=== PATIENT | female | born 1955 | race Caucasian/White ===

== ENCOUNTER 2023-10-22 06:29 | Day surgery (SDC) | payer OTHER, SELFPAY ==
[2023-10-22] VITALS (14 sets, daily range): BP systolic 107–152; BP diastolic 67–92; BMI 29.4
[2023-10-22 08:35] LABS: Glucose - Point of Care 145 mg/dl (70-99)
[2023-10-22 11:13] LABS: Glucose - Point of Care 207 mg/dl (70-99)
== END 2023-10-22 13:55 | disposition home or self-care (01) ==
LOC: GI 06:29
PROVIDERS: ATTENDING PHYSICIAN Internal Medicine Critical Care Medicine
DX: R06.02 Shortness of breath (principal); C34.2 Malignant neoplasm of middle lobe, bronchus or lung; I48.91 Unspecified atrial fibrillation; J98.9 Respiratory disorder, unspecified; Z87.891 Personal history of nicotine dependence; G47.30 Sleep apnea, unspecified; C77.1 Secondary and unspecified malignant neoplasm of intrathoracic lymph nodes
CPT/HCPCS: 31653; 31625; 31624; 31623; 88173; 88305; 71045; 82962; 87070; 87102; 87116; 87205; 88112; 88333; 88341; 88342

== ENCOUNTER → 2023-11-06 14:37 | Outpatient (REF) | payer OTHER, SELFPAY | LOC: RSP 14:37 | PROVIDERS: ATTENDING PHYSICIAN Thoracic Surgery (Cardiothoracic Vascular Surgery); FAMILY PHYSICIAN Family Medicine | DX: C34.2 Malignant neoplasm of middle lobe, bronchus or lung (principal) | CPT/HCPCS: 94727; 94729; 88738; 94060 ==

== ENCOUNTER → 2023-12-06 11:52 | Outpatient (REF) | payer OTHER, SELFPAY | LOC: MRI 3T 11:52 | PROVIDERS: ATTENDING PHYSICIAN Internal Medicine Hematology & Oncology; FAMILY PHYSICIAN Family Medicine | DX: C34.2 Malignant neoplasm of middle lobe, bronchus or lung (principal) | CPT/HCPCS: 70553; A9575 ==

== ENCOUNTER → 2024-02-01 13:49 | Outpatient (REF) | payer OTHER, SELFPAY | LOC: RAD 13:49 | PROVIDERS: ATTENDING PHYSICIAN Internal Medicine Hematology & Oncology; FAMILY PHYSICIAN Family Medicine | DX: C34.2 Malignant neoplasm of middle lobe, bronchus or lung (principal) | CPT/HCPCS: 71260; 74177; Q9967 ==

== ENCOUNTER 2024-04-24 06:59 | Day surgery (SDC) | payer OTHER, SELFPAY ==
[2024-04-24 08:08] VITALS: BMI 28.6
[2024-04-24 08:10] LABS: Glucose - Point of Care 143 mg/dl (70-99)
[2024-04-24 09:52] LABS: Glucose - Point of Care 145 mg/dl (70-99)
== END 2024-04-24 10:12 | disposition home or self-care (01) ==
LOC: CATH 06:59
PROVIDERS: ATTENDING PHYSICIAN Internal Medicine Cardiovascular Disease; FAMILY PHYSICIAN Family Medicine; OTHER PHYSICIAN Internal Medicine Cardiovascular Disease
DX: I48.19 Other persistent atrial fibrillation (principal); I70.0 Atherosclerosis of aorta; Q21.12 Patent foramen ovale; R00.2 Palpitations; E03.9 Hypothyroidism, unspecified; E11.9 Type 2 diabetes mellitus without complications; E78.5 Hyperlipidemia, unspecified; G47.33 Obstructive sleep apnea (adult) (pediatric); F41.9 Anxiety disorder, unspecified; K76.0 Fatty (change of) liver, not elsewhere classified; I10 Essential (primary) hypertension; I08.1 Rheumatic disorders of both mitral and tricuspid valves; Z79.899 Other long term (current) drug therapy; Z87.891 Personal history of nicotine dependence; Z90.49 Acquired absence of other specified parts of digestive tract; Z90.89 Acquired absence of other organs; Z92.21 Personal history of antineoplastic chemotherapy; M85.80 Other specified disorders of bone density and structure, unspecified site; E83.42 Hypomagnesemia; D50.9 Iron deficiency anemia, unspecified; Z79.01 Long term (current) use of anticoagulants; Z79.84 Long term (current) use of oral hypoglycemic drugs; Z86.0100 Personal history of colon polyps, unspecified
CPT/HCPCS: 93312; 93320; 93325; 82962

== ENCOUNTER 2024-04-25 05:50 | Day surgery (SDC) | payer OTHER, SELFPAY ==
[2024-04-08 13:27] VITALS: BMI 28.0
[2024-04-08 13:58] LABS: % Basophils 0.4 % (0-2); % Eosinophils 2.6 % (0-6); % Immature Granulocytes 0.7 % (0-0.5); % Lymphocytes 5.8 % (20.5-51.1); % Monocytes 7.9 % (1.7-9.3); % Neutrophils 82.6 % (42.2-75.2); Absolute Eosinophils 0.3 10^3/uL (0-0.7); Absolute Immature Granulocytes 0.1 10^3/uL (0-0.05); Absolute Lymphocytes 0.6 10^3/uL (1.2-3.4); Absolute Monocytes 0.8 10^3/uL (0.1-0.6); Absolute Neutrophils 8.8 10^3/uL (1.4-6.5); Hematocrit 28.3 % (37.0-47.0); Hemoglobin 9.1 g/dL (12.0-16.0); Mean Corp Hgb Conc. 32.2 g/dL (33.0-37.0); Mean Corpuscular Hgb 27.7 pg (27.0-31.0); Nucleated Red Blood Cells % 0 %; Platelet Count 361 10^3/uL (130-400); Red Blood Cell Count 3.29 10^6/uL (4.20-5.40); Red Cell Dist. Width 14.2 % (11.5-14.5); White Blood Cell Count 10.7 10^3/uL (4.8-10.8)
[2024-04-08 14:27] LABS: INR 1.41; PT 17.6 Sec (11.4-14.6)
[2024-04-08 14:29] LABS: ALT (SGPT) 31 U/L (0-35); AST (SGOT) 61 U/L (14-36); Albumin 4.2 g/dl (3.5-5.0); Alkaline Phosphatase 171 U/L (38-126); Blood Urea Nitrogen 21 mg/dl (7-17); Calcium 9.4 mg/dl (8.4-10.2); Carbon Dioxide 26 mmol/L (22-30); Chloride 95 mmol/L (98-107); Estimated Creatinine Clearance 59 ml/min; Glucose 115 mg/dl (70-99); Magnesium 1.6 mg/dl (1.6-2.3); Potassium 4.1 mmol/L (3.5-5.1); Sodium 136 mmol/L (135-145); Total Bilirubin 0.5 mg/dl (0.2-1.3); Total Protein 7.3 g/dl (6.3-8.2); eGFR > 60.00
--- NOTE | 2024-04-09 14:57 | HPS.HSE ---
Family Physician
-
Family Physician: Alexia Herrera
Chief Complaint
-
Persistent atrial fibrillation.
History of Present Illness
The patient is a 68-year-old female presenting today for persistent atrial fibrillation. The patient reports significant fatigue and palpitations secondary to this diagnosis. She is on pharmacological therapy with Diltiazem. She has been
compliant with Eliquis for oral anticoagulation. She notes that her atrial fibrillation symptoms are greatly interfering with her activities of daily living and are overall impacting her quality of life. She is interested in proceeding with
pulmonary vein isolation for further arrhythmia management. She denies any current complaints today such as chest pain, shortness of breath at rest, nausea, vomiting, diarrhea, lightheadedness, dizziness, cough, sore throat, or fever.
Medical History
Past Medical History
Past Medical History: Reports Other
Additional Past Medical History:
1. Persistent atrial fibrillation, pharmacological therapy with Diltiazem, oral anticoagulation with Eliquis.
2. Hypertension.
3. Hyperlipidemia.
4. Supraventricular tachycardia.
5. Obstructive sleep apnea, compliant with device.
6. Non-small cell lung cancer, stage IIIB, diagnosed incidentally through chest CT 09/2023, status post chemotherapy and radiation; on current immunotherapy.
7. Non-insulin dependent diabetes.
8. Colon polyps.
9. Fatty liver disease with mildly elevated transaminase.
10. Benign positional vertigo.
11. Hypothyroidism.
12. Iron deficiency anemia, to start IV Injectafer per hematology.
13. Anxiety.
14. Osteopenia.
15. Hypomagnesemia, improved with oral supplementation.
16. History of tobacco abuse.
Past Surgical History: Reports Other
Additional Past Surgical History:
1. Cholecystectomy.
2. Lipoma excision from neck.
3. Tonsillectomy.
4. Bilateral cataract extraction.
5. Bronchoscopy.
6. Colonoscopy.
7. Endoscopy.
Social History
Tobacco: Former Smoker (She is a former one pack per day cigarette smoker who quit tobacco products altogether approximately 11 years ago. )
Alcohol: Other (Rare. )
Personal:
Living: Other (The patient lives in a one-story home with her .)
Family History
Family History: Not pertinent
Allergies / Home Medications
Allergy/Medication List:
HOME MEDICATIONS:
1. Apixaban 5 mg p.o. twice a day.
2. Atorvastatin 20 mg p.o. at noon.
3. Calcium and vitamin D3 one tablet p.o. twice a day.
4. Diltiazem HCl 240 mg p.o. daily.
5. Lexapro 10 mg p.o. at bedtime.
6. Glimepiride 2 mg p.o. daily.
7. Vascepa 2 gm p.o. twice a day.
8. Imfinzi one dose IV every two weeks.
9. Levothyroxine 75 mcg p.o. Mondays, Tuesdays, Wednesdays,
, Fridays, and Saturdays.
10. Levothyroxine 150 mcg p.o. on Sundays.
11. Lisinopril-hydrochlorothiazide 10-12.5 mg p.o. daily.
12. Magnesium 400 mg p.o. daily.
13. Metformin 1000 mg p.o. twice a day.
14. Multivitamin one tablet p.o. daily.
15. Ozempic 0.5 mg subcutaneous on Tuesdays.
ALLERGIES: No known allergies.
Review of Systems
-
A 12 point ROS was completed and negative except as noted: Yes
Physical Exam
Vital Signs
Blood pressure 116/72, heart rate 100, respirations 18, pulse ox 94% on room air.
Height 5 feet 5 inches, weight 76.3 kg, BMI 28.0.
Physical Exam
General: Well Developed, Well Nourished and No Apparent Distress
HEENT: NormoCephalic, Moist mucous membranes and Atraumatic
Respiratory: Non Labored Respirations and Decreased Breath Sounds
Cardiac: Irregular Rhythm
GI: Soft, Non Tender and Non Distended
Musculoskeletal: Normal Gait & Station
Skin: Warm and Dry
Neuro: AO x 3 and Nonfocal/grossly intact
Laboratory Results
-
04/08/24 13:38
04/08/24 13:38
Laboratory Results
PT 17.6 Sec (11.4-14.6) H 04/08/24 13:38
INR 1.41 04/08/24 13:38
Total Bilirubin 0.5 mg/dl (0.2-1.3) 04/08/24 13:38
AST 61 U/L (14-36) H 04/08/24 13:38
ALT 31 U/L (0-35) 04/08/24 13:38
Alkaline Phosphatase 171 U/L (38-126) H 04/08/24 13:38
Type and screen B positive.
EKG 04/08/2024: Atrial fibrillation. Low voltage QRS. Cannot rule out anterior infarct, cited on or before September 06, 2023.
Impression/Plan
-
IMPRESSION/PLAN:
1. Persistent atrial fibrillation:The patient is in need of pulmonary vein isolation with Dr. Rakesh Mane on 04/25/2024. The benefits and risks of this procedure have been explained to the patient. The patient understands these risks and wishes to
proceed. She is aware to continue Eliquis uninterrupted prior to her ablation. She will take no medications the morning of her procedure.
2. Iron deficiency anemia: The patient's hemoglobin is fairly consistent with trends provided by hematology (9.7 and 9.3 most recently). Per Dr. Santoro, she will be started on IV Injectafer. Fortunately, the patient is hemodynamically stable.
[2024-04-25] VITALS (18 sets, daily range): BP systolic 102–135; BP diastolic 53–80; PULSE 2–99; BMI 28.0
[2024-04-25 06:48] LABS: Glucose - Point of Care 165 mg/dl (70-99)
--- NOTE | 2024-04-25 07:38 | ITS.CL.ABL ---
Foreign Exchange Position Clerk - Ablation
Ablation
Procedure Report:
Primary Telephone Service Representative: Ruben Petersen MD
Procedure Date: 04/25/2024
Patient History:
Patient is a very pleasant 68-year-old female with a past medical history significant for diabetes mellitus type 2, hypertension, sleep apnea on CPAP, hypothyroidism, fatty liver disease, persistent atrial fibrillation, stage IIIb lung
adenocarcinoma undergoing treatment.
See H&P for complete details.
Indication:
Symptomatic persistent atrial fibrillation
Arrhythmia Specific History:
Prior Medical Therapies for Rate and Rhythm Control:
[ ] Beta-mari
X Calcium channel-mari
[ ] Amiodarone
[ ] Dronederone
[ ] Sotalol
[ ] Flecainide
[ ] Dofetilide
[ ] Options limited by bradycardia
[ ] Options limited by comorbid renal disease
Prior Procedural Therapies for AF/AFL:
[ ] Cardioversion
[ ] Pulmonary Vein Isolation
[ ] Posterior Wall Isolation
[ ] Additional lines (Specify)
[ ] Surgical Thayer-MAZE or PVI (Specify)
Procedure Performed:
X AF ablation procedure (28903) -- includes LA/CS pacing, trans-septal, 3D mapping, + ICE
[ ] +IV drug (68725)
[ ] +Other Arrhythmia (01291)
X +Other AF Line/ablation (61114) --posterior wall isolation (floor, roof, wall)
Risks and expected recovery has been explained in detail. Alternative options have been explored, and in a shared-decision making fashion we have decided that this was the most appropriate procedure.
Method
NPO status confirmed. Grounding pad applied. Defibrillator pads applied. Continuous surface ECG, pulse oximetry, and blood pressure were monitored. Procedure was performed under general anesthesia, with anesthesia services.
Both groins were clipped, prepped with Chloraprep, and draped in sterile fashion. Time out was called. Local anesthesia administered with bupivacaine. The right femoral vein was accessed for catheter placement, using ultrasound guidance,
micro-puncture needle/wire, and modified seldinger technique. 3 sheaths were placed. The following catheters were used:
[ ] Tacticath SE (D/F Curve) ablation catheter
X Viewflex 9Fr ICE catheter
X Inquiry decapolar 6Fr diagnostic catheter
[ ] CRD Hex 6Fr
[ ] Arctic Front Advance Cryoballoon ([ ]28mm[ ]23mm)
[ ] Achieve Advance mapping catheter ([ ]15mm[ ]20mm)
X FlexCath Contour 10 Fr with PulseSelect PFA Catheter
X Advisor HD Grid Mapping Catheter, SE
[ ] Acuson AcuNav 8 Fr ICE catheter
[ ]Other: [ ]
Intracardiac ultrasound (ICE) was carefully advanced into the right atrium to guide sheath placement over a J-wire, catheter placement, guide trans-septal puncture, identify potential complications, identify anatomic structures and ensure proper
contact between ablation catheter and tissue.
Heparin was given prior to trans-septal puncture. Heparin was given to achieve and maintain a target ACT of 300-400 seconds throughout the procedure.
Trans-septal access was performed under ICE guidance. The trans-septal puncture was performed with a SafeSept wire through a Brockenbrough needle assembly through the steerable sheath. The wire was visualized as it entered the LSPV and system
advanced under ICE guidance and fluoroscopy into the LA. The Brockenbrough needle assembly, SafeSept wire and sheath dilator were removed under negative pressure. LA pressure was measured and recorded.
ICE and 3D mapping was performed to identify relevant cardiac structures. A careful 3D map was created to assess for regions of low-voltage and abnormal electrogram signals using HD grid mapping catheter and PulseSelect catheter. Additional mapping
was performed as outlined below.
Prior to ablation, glycopyrrolate was provided. PulseSelect catheter was advanced over J-wire to the ostium of each vein. Pulmonary vein isolation was performed with ostial and antral lesions in a circumferential manner. Contact was visualized via
EAM, ICE, fluoroscopy, and EGM signals. Posterior wall isolation was performed by anchoring the J-wire within the pulmonary vein and placing the PulseSelect catheter in contact with the posterior wall as visualized by aforementioned methods.
Following completion of ablation lesions, sinus rhythm was restored with a 200J synchronized DCCV and a post-ablation voltage/activation map was performed in sinus rhythm. Entrance and exit block were confirmed for each vein and the posterior wall.
Catheter and sheath were removed from the left atrium and post-ablation intracardiac echo evaluation was consistent with pre-ablation with no changes and no pericardial effusion and there is no left atrial thrombus or left ventricle thrombus seen.
Electrophysiology study was performed. Hemostasis was obtained with figure of 8 stitch for each groin and with manual pressure. Protamine was used for reversal.
Estimated Blood Loss
5 mL
Complications
None
Fluoroscopy: 3.3 minutes; 21.79 mGy; DAP 2.58
Baseline Intervals:
Rhythm: AF
QRS: 83 ms
QT: 292 ms
QTc: 435 ms
Post-Procedure Intervals:
HI: 170 ms
QRS: 106 ms
QT: 361 ms
QTc: 447 ms
A-A: 653 ms
R-R: 653 ms
AVWB: 360 ms
AVNERP: 500/330 ms
AERP: 500/250
Recommendations
- Bedrest with straight-leg precautions as ordered
- Anticipate same day discharge if patient meeting clinical metrics
- Resume home medications as indicated including OAC
- Ok to resume anticoagulation tonight if patient and groin sites stable
- PPI daily for 30 days
- Plan for follow-up in office as scheduled
Rakesh Mane,
Clinical Cardiac Pulmonology Physician
cc: Ruben Petersen MD; Alexia Herrera MD; Miguel A Driver MD; Matilda Santoro MD
[2024-04-25 08:29] LABS: ACT-LR - POC 189 Seconds (116-155)
[2024-04-25 08:33] LABS: ACT-LR - POC 195 Seconds (116-155)
[2024-04-25 08:38] LABS: Glucose - Point of Care 145 mg/dl (70-99)
[2024-04-25 08:44] LABS: ACT-LR - POC 308 Seconds (116-155)
[2024-04-25 08:52] LABS: ACT-LR - POC 314 Seconds (116-155)
[2024-04-25 09:14] LABS: ACT-LR - POC 321 Seconds (116-155)
[2024-04-25 09:49] LABS: ACT-LR - POC 160 Seconds (116-155)
[2024-04-25 11:35] LABS: Glucose - Point of Care 251 mg/dl (70-99)
[2024-04-25] MEDS: CARDIZEM CD 240 MG PO (11:45)
[2024-04-25] MEDS: ANESTHETIC LOZENGE 1 LOZENGE PO ×2 (13:46→19:49)
--- NOTE | 2024-04-25 14:37 | PTCARENOTE ---
Patient ambulated to bathroom on RA. Upon returnign to bed o2 79% RA. No complaints of pain or SOB. 3L o2 applied. 92% ON 3lnc. Recovered quickly.
--- NOTE | 2024-04-25 18:05 | PTCARENOTE ---
received pt post pvi. pt oriented to unit. pt educated on plan of care and verbalized understanding. pt is sr on the monitor, hr in the 90s, vss. pt on 3LO2 at 92%. pt offers no complaints at this time. call crawford within reach.
--- NOTE | 2024-04-25 18:06 | RESPNOTE ---
spoke with patient regarding bipap/cpap. Patient states she does not have own unit but will try hospital unit. Patient does not recall settings, but H&P in EMR has settings of bipap 03/13. TT to provider Miranda Overton for order change to routine HS bipap
03/13. new order now in EMR.
[2024-04-25] MEDS: ELIQUIS 5 MG PO (19:49)
[2024-04-25] MEDS: LEXAPRO 10 MG PO (19:49)
[2024-04-25] MEDS: GLUCOPHAGE 1000 MG PO (19:49)
--- NOTE | 2024-04-25 21:08 | PTCARENOTE ---
Pt received seated in chair. remains 93% on 3L NC. Pt without complaints. R groin CDI + pulse. Plan of care discussed. call crawford within reach.
[2024-04-25 22:44] LABS: Glucose - Point of Care 154 mg/dl (70-99)
[2024-04-26 04:24] VITALS: BP 116/66
[2024-04-26] MEDS: SYNTHROID 75 MCG PO (04:27)
[2024-04-26 04:57] LABS: Hematocrit 23.3 % (37.0-47.0); Mean Corpuscular Hgb 26.8 pg (27.0-31.0); Mean Corpuscular Volume 89.3 fL (81.0-99.0); Mean Platelet Volume 9.8 fL (7.4-10.4); Platelet Count 269 10^3/uL (130-400); Red Blood Cell Count 2.61 10^6/uL (4.20-5.40); Red Cell Dist. Width 17.2 % (11.5-14.5); White Blood Cell Count 8.8 10^3/uL (4.8-10.8)
[2024-04-26 05:23] LABS: Blood Urea Nitrogen 18 mg/dl (7-17); Calcium 8.2 mg/dl (8.4-10.2); Carbon Dioxide 26 mmol/L (22-30); Chloride 100 mmol/L (98-107); Estimated Creatinine Clearance 89 ml/min; Glucose 141 mg/dl (70-99); Magnesium 1.5 mg/dl (1.6-2.3); Potassium 4.3 mmol/L (3.5-5.1); Sodium 134 mmol/L (135-145); eGFR > 60.00
[2024-04-26 07:20] VITALS: BP 118/58
[2024-04-26 07:24] LABS: Glucose - Point of Care 137 mg/dl (70-99)
[2024-04-26 07:26] VITALS: BMI 27.8
--- NOTE | 2024-04-26 08:50 | CON.PUL ---
Consultation
Consultation Request
Date/Time Consultation Requested: 04/25/2024 - 1441
Date/Time Consultation Performed: 04/26/2024 - 0848
Requesting Provider: FELICIA Pollard
Performing Provider: Stefan Ba MD
Reason for Consultation: Hypoxia
Medical History
-
Chief Complaint: Elective PVI
History of Present Illness:
68-year-old female with a past medical history of moderate restrictive lung disease, former tobacco smoker, TTAO on BiPAP, A-fib on Eliquis, history of SVT, DM type II, anxiety, hypertension, hypothyroidism, mixed hyperlipidemia, history of BPPV and
right middle lung adenocarcinoma s/p XRT on immunotherapy with durvalumab who presents for an A-fib ablation. Patient has been having symptoms including fatigue and palpitations. She has been compliant to her diltiazem + Eliquis. She follows with
cardiology as an outpatient with last visit on 01/29/[address] Mane. At that office visit, pulmonary vein isolation was discussed and she agreed to procedure. On 04/25/2024 she underwent pulmonary vein isolation with posterior wall isolation.
Following completion of ablation lesions, sinus rhythm was restored with a 200 J synchronized DCCV. There were no complications and EBL was 5 cc. She was transferred to the IVU for further care and pulmonary services consulted for additional
management/recommendations.
Of note patient follows with us in the [facility] office with Dr. Driver, last visit on 01/18/2024. She has a history of restrictive lung disease likely due to body habitus; last PFT from 01/18/2024 showed moderate restrictive lung defect with T%
predicted, with a moderate gas change capacity defect which was normal when accounting for alveolar volume involved in gas exchange (DLco: 51%, DLco/VA: 80%), and is a former tobacco smoker. Also follows with us for TATO on BiPAP 11/7cmH2O.
PMHx: Right middle lung adenocarcinoma s/p XRT on immunotherapy, pulmonary LOLITA, former tobacco smoker (44-slbc-pwuh history, quit 2012), TATO on BiPAP, A-fib on Eliquis, history of SVT, DM type II, anxiety, hypertension, hypothyroidism, fatty liver
disease, mixed hyperlipidemia, osteopenia, colonic polyps, lymphadenopathy, history of BPPV
PSHx: LASIK eye surgery (both eyes), wisdom tooth extraction, cholecystectomy, tonsillectomy, excision of lipoma, cataract surgery
Past Medical History
Past Medical History: Other (Above as per HPI)
Past Surgical History: Other (Above as per HPI)
Social History
Tobacco: Former Smoker (11-hbtf-umud history, quit 2012)
Alcohol: Occasional (Rare use)
Drug: None
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
Family History
Family History: CAD (Mother) and Diabetes (Father)
Allergies / Home Medications
Allergies
Allergy/AdvReac Type Severity Reaction Status Date / Time
ibandronate sodium AdvReac bone pain, Verified 04/25/24 16:28
[From [facility]iva] nausea,
headache,
brain fog
Home Medications
�Medication �Instructions �Recorded �Confirmed �Last Taken �Type
atorvastatin 20 mg tablet 20 mg PO DAILY@1200 High 08/31/23 04/25/24 04/24/24 11:00 History
Cholesterol
escitalopram oxalate 10 mg tablet 10 mg PO HS Mental Health/Anxiety 08/31/23 04/25/24 04/24/24 11:00 History
(Lexapro)
glimepiride 2 mg tablet 2 mg PO DAILY Diabetes 08/31/23 04/25/24 04/24/24 11:00 History
icosapent ethyl 1 gram capsule 2 g PO BID Heart Disease/Condition 08/31/23 04/25/24 04/24/24 17:00 History
(Vascepa)
levothyroxine 75 mcg tablet 75 mcg PO MOTUWETHFRSA Thyroid 08/31/23 04/25/24 04/24/24 11:00 History
levothyroxine 75 mcg tablet 150 mcg PO MAC 08/31/23 04/25/24 04/20/24 08:00 History
lisinopril 10 1 tab PO DAILY Blood Pressure 08/31/23 04/25/24 04/24/24 11:00 History
mg-hydrochlorothiazide 12.5 mg
tablet
metformin 500 mg tablet 1,000 mg PO BID Diabetes 08/31/23 04/25/24 04/24/24 17:00 History
multivitamin 1 tab PO DAILY@1200 Supplement 08/31/23 04/25/24 04/24/24 11:00 History
semaglutide 0.25 mg or 0.5 mg (2 0.5 mg SC TU Diabetes 08/31/23 04/25/24 04/15/24 11:00 History
mg/3 mL) subcutaneous pen injector
(Ozempic)
apixaban 5 mg tablet (Eliquis) 5 mg PO BID Blood Clot 09/14/23 04/25/24 04/24/24 17:00 History
Prevention/Tx
diltiazem HCl 240 mg capsule,24 240 mg PO DAILY Heart 04/04/24 04/25/24 04/24/24 05:00 History
hr,extended release Disease/Condition
magnesium 200 mg tablet 400 mg PO DAILY Supplement 04/04/24 04/25/24 04/24/24 11:00 History
Durvalumab-Imfinzi 780 mg IV Q2W Cancer 04/24/24 04/25/24 04/22/24 10:00 History
acetaminophen 500 mg tablet 1,000 mg PO Q6H PRN pain 04/24/24 04/25/24 Unknown History
albuterol sulfate 90 mcg/actuation 2 puff inhalation 6XD PRN sob 04/24/24 04/25/24 1 Week Ago History
aerosol inhaler ~04/17/24
calcium 600 mg capsule 600 mg PO DAILY@1200 Supplement 04/24/24 04/25/24 04/24/24 17:00 History
iron sucrose 200 mg iron/10 mL 200 mg IV QWEEK Supplement 04/24/24 04/25/24 04/22/24 09:00 History
intravenous solution (Venofer)
magnesium sulfate 2 gram/50 mL (4 1 g IV ONCE PRN hypomagnesium 04/24/24 04/25/24 04/22/24 09:00 History
%) in water intravenous piggyback
Review of Systems
-
History Source: Patient
All other systems: Negative unless noted
Vitals / Labs / Diagnostic Testing
Vital Signs
Temp Pulse Resp BP Pulse Ox
98.0 F 95 18 118/58 95
04/26/24 07:24 04/26/24 08:00 04/26/24 07:24 04/26/24 07:20 04/26/24 07:24
Lab Data
04/26/24 04:23
04/26/24 04:23
Diagnostic Testing:
Physical Exam
-
HEENT: Normocephalic, Anicteric and Moist Mucous Membranes
Cardiovascular: S1/S2, Murmur (16 at LUSB), Rub (negative) and Peripheral Edema (negative)
Respiratory: Wheeze (negative), Rales (negative), Rhonchi (negative) and Non-Labored Respirations
GI: Soft, Non Distended, Non Tender and Normal Bowel Sounds
Neurology: AO x 3 and Tremors (negative)
Skin: Warm and Dry
General: Respiratory Distress (negative), Comfortable, Fever (negative) and Chills (negative)
Assessment
-
Assessment: 68-year-old female with a past medical history of moderate restrictive lung disease, former tobacco smoker, TATO on BiPAP, A-fib on Eliquis, history of SVT, DM type II, anxiety, hypertension, hypothyroidism, mixed hyperlipidemia, history
of BPPV and right middle lung adenocarcinoma s/p XRT on immunotherapy with durvalumab who presents for an A-fib ablation. Patient has been having symptoms including fatigue and palpitations. She has been compliant to her diltiazem + Eliquis. She
follows with cardiology as an outpatient with last visit on 01/29/[address] Mane. At that office visit, pulmonary vein isolation was discussed and she agreed to procedure. On 04/25/2024 she underwent pulmonary vein isolation with posterior
wall isolation. Following completion of ablation lesions, sinus rhythm was restored with a 200 J synchronized DCCV. There were no complications and EBL was 5 cc. She was transferred to the IVU for further care and pulmonary services consulted for
additional management/recommendations.
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
hypothyroidism, fatty liver disease, mixed hyperlipidemia, osteopenia, colonic polyps, lymphadenopathy, history of BPPV
Impression:
#Symptomatic persistent A-fib s/p pulmonary vein isolation with posterior wall isolation (procedure performed on 04/25/2024)
#Acute anemia
#Hyponatremia (mild)
#Hypomagnesemia
#History of right middle lobe invasive lung adenocarcinoma (poorly differentiated) via robotic bronchoscopy on 10/22/2023 s/p XRT currently on immunotherapy with durvalumab
#TATO on BiPAP 11/7cmH2O
#Former tobacco smoker (17-icaj-lhid history, quit 2012)
#DM type II
#Anxiety
#Hypertension
#Mixed hyperlipidemia
#History of LOLITA seen on right middle lobe bronchoalveolar lavage from 10/22/2023
#Fatty liver disease
Plan:
- Patient remains in sinus rhythm s/p ablation yesterday
- Pain control
- Hb is low at 7 and she is not symptomatic nor is she actively bleeding
- Repeat CBC next week as an outpatient; she also receives IV iron infusions
- Transfuse to keep Hb>7g/dL; keep plt>50k
- Continue with outpatient follow-up with cardiology/EP
- Maintain SpO2 >90-94% with supplemental O2 as needed
- Continue with BiPAP with sleep
- Incentive spirometer encouraged q1hr while awake
- Replete electrolytes with K>4, Mg>2
- Maintain euglycemia with goal BG >100 and <180
- prn nebulized bronchodilators - not currently bronchospastic
- CXR from 04/25/2024 shows sick centimeter confluent mass in the right midlung region; this is either due to a pneumonia versus postobstructive pneumonia versus atelectasis versus worsening malignancy; continue follow-up with oncology as an
outpatient and would consider outpatient PET/CT vs CT chest without contrast to further evaluate this lesion
- DVT ppx: Eliquis
Patient is being prepared for discharge home today. She should continue to follow-up with us in the office as last visit was 01/18/[address] Driver. No additional recommendations at this time. Pulmonary service will now sign off. Thank you
for allowing us to be involved in the care of this patient. Please reconsult if there are any additional questions/concerns, or if patient's respiratory status deteriorates.
Data:
CXR 04/25/2024:
There is a 6 cm rounded confluent areas of parenchymal airspace disease in the right perihilar region and right middle lobe. This most likely is pneumonia, however, given the patient's clinical history, both postobstructive pneumonia and enlarging
pulmonary malignancy is included in the differential diagnosis.
Contrast-enhanced CT of the chest may be useful for further evaluation
Total time spent today was 57 minutes for this encounter. Time includes reviewing laboratory test/imaging results, reviewing pertinent medical records, obtaining and reviewing medical history, performing an appropriate exam, ordering medications,
tests and procedures. Time also includes documentation of this encounter, coordinating patient care and communicating with other healthcare professionals. Total time does not include separately billed tests performed on this date of service.
[2024-04-26 09:00] LABS: Glycohemoglobin (HgbA1c) 6.3 % (4.0-5.6)
[2024-04-26] MEDS: CARDIZEM CD 240 MG PO (09:29)
[2024-04-26] MEDS: ELIQUIS 5 MG PO (09:29)
[2024-04-26] MEDS: GLUCOPHAGE 1000 MG PO (09:29)
[2024-04-26] MEDS: ORETIC 12.5 MG PO (09:29)
[2024-04-26] MEDS: MAG-TAB SR 84 MG PO (09:29)
[2024-04-26] MEDS: AMARYL 2 MG PO (09:29)
[2024-04-26] MEDS: ZESTRIL 10 MG PO (09:30)
--- NOTE | 2024-04-26 10:04 | W.PN.CARDCBS ---
Addendum entered and electronically signed by Tray Pro MD 04/26/24 11:31:
I saw and examined the patient.
The Fire Extinguisher Mechanic's note was reviewed and I agree with the note.
Comment:
GEN: No distress, awake, Ox3
HEENT: supple, anicteric, mmm
LUNGS: CTA, no wheezes/rales
CV: Reg, S1/S2, 1/6 syst LSB, no gallop
ABD: soft, BS+, NT/ND
EXT: No edema
NEURO: Gross non-focal
SKIN: No rash
Plan:
Remains in sinus rhythm status post ablation.
Hemoglobin at 7.0. Baseline likely around 8. Repeat CBC next week with IV iron infusion.
Continue Eliquis and diltiazem. Okay for discharge
Original Note:
Today's Communication / Plan
-
Eliquis resumed 04/25/2024 in p.m.
Patient maintaining sinus rhythm post ablation
Hemodynamically stable
Hemoglobin dropped to 7.0, will need CBC next week. Patient has blood work scheduled and IV Venofer infusion with Dr. Santoro on 04/29/2024
Resume usual outpatient medication
Impression / Plan
-
Family doctor: Alexia Herrera
Primary outpatient telephone solicitor supervisor: Ruben Petersen MD
Development Educator: Rakesh Mane
Impression:
Symptomatic persistent atrial fibrillation
Status post AF ablation and posterior wall isolation (floor, roof, wall) 04/25/24
SVT
Type 2 diabetes
Hypertension
Mitral regurgitation
Tricuspid regurgitation
Obstructive sleep apnea on CPAP
Hypothyroidism
Fatty liver disease
Stage IIIb lung cancer status post chemoradiation on immunotherapy
Iron deficiency anemia
Anxiety
History of tobacco abuse
JAQUELINE 04/24/2024: EF 55 to 60%, mild concentric LVH. Mildly dilated left atrium. No left atrial appendage thrombus. Mild to moderate MR, mild TR.
Plan:
-Elective admission symptomatic persistent atrial fibrillation now s/p AF ablation and posterior wall isolation (floor, roof, wall) 04/25/24
-Patient seen and examined. Patient overall reports she is feeling well. She has been able to ambulate around the room without any chest pain or shortness of breath.
-Per review of telemetry maintaining sinus rhythm. EKG 04/26/2024 sinus rhythm
-Groin access stable without significant hematoma.
-Eliquis resumed 04/25/2024 in p.m.
-PPI daily for 30 days -patient has done well with omeprazole in past.
-Hgb dropped to 7.0 post procedure. Was 9.1 on preop labs 04/08/2024. Patient is hemodynamically stable. She will need CBC in 3-5 days and has follow-up with Dr. Santoro
-Iron deficiency anemia with ongoing treatment for lung cancer. Follows with heme-onc:Dr. Santoro with baseline hemoglobin 9.1-9.7. Gets IV Venofer as outpatient. Reports she is scheduled for next blood work (CBC) and IV Venofer on 04/29/2024.
-Patient stable for discharge to home. Outpatient cardiology follow-up has been arranged
HPI:
The patient is a 68-year-old female presenting today for persistent atrial fibrillation. The patient reports significant fatigue and palpitations secondary to this diagnosis. She is on pharmacological therapy with Diltiazem. She has been
compliant with Eliquis for oral anticoagulation. She notes that her atrial fibrillation symptoms are greatly interfering with her activities of daily living and are overall impacting her quality of life. She is interested in proceeding with
pulmonary vein isolation for further arrhythmia management. She denies any current complaints today such as chest pain, shortness of breath at rest, nausea, vomiting, diarrhea, lightheadedness, dizziness, cough, sore throat, or fever.
:
Patient is a very pleasant 68-year-old female with a past medical history significant for diabetes mellitus type 2, hypertension, sleep apnea on CPAP, hypothyroidism, fatty liver disease, persistent atrial fibrillation, stage IIIb lung
adenocarcinoma undergoing treatment.
Progress Note - Moisture Machine Tender
Subjective
Date of Service: April 26, 2024
Patient seen and examined. Patient reports that she is feeling well. No issues overnight. No pain or discomfort in groin. She is able to ambulate around the room without having chest pain, shortness of breath, dizziness, lightheadedness or
palpitations.
Objective
Labs:
04/26/24 04:23
04/26/24 04:23
Labs
Hgb 7.0 g/dL (12.0-16.0) L 04/26/24 04:23
Hct 23.3 % (37.0-47.0) L 04/26/24 04:23
Plt Count 269 10^3/uL (130-400) 04/26/24 04:23
PT 17.6 Sec (11.4-14.6) H 04/08/24 13:38
INR 1.41 04/08/24 13:38
Sodium 134 mmol/L (135-145) L 04/26/24 04:23
Potassium 4.3 mmol/L (3.5-5.1) 04/26/24 04:23
BUN 18 mg/dl (7-17) H 04/26/24 04:23
Creatinine 0.5 mg/dL (0.6-1.0) L 04/26/24 04:23
Glucose 141 mg/dl (70-99) H 04/26/24 04:23
Vital Signs and I&O:
Vital Signs
Temp Pulse Resp BP Pulse Ox
98.0 F 95 18 118/58 95
04/26/24 07:24 04/26/24 08:00 04/26/24 07:24 04/26/24 07:20 04/26/24 07:24
Vital Signs
Temp Pulse Resp BP Pulse Ox
98.0 F 95 18 118/58 95
04/26/24 07:24 04/26/24 08:00 04/26/24 07:24 04/26/24 07:20 04/26/24 07:24
Physical Exam
Physical Exam
GEN: No distress, awake, Ox3, sitting up in chair
HEENT: supple, anicteric, mmm
LUNGS: CTA, no wheezes/rales, on room air
CV: Reg, S1/S2, no murmur, rub or gallop
ABD: soft, BS+, NT/ND
EXT: No edema, clubbing or cyanosis; right femoral access site with +2 femoral pulse, no bruit, dressing clean dry intact without hematoma or ecchymosis
NEURO: Gross non-focal
SKIN: No rash, warm, dry, pink
--- NOTE | 2024-04-26 10:42 | W.DS.TRANS ---
DC Summary - Supervisor Print Line
-
Discharge Instructions:
Discharge Diagnosis/Procedures Atrial fibrillation post ablation
Diet Low Cholesterol,Diabetic, Carb Controlled
Driving Restrictions No driving for 24 hours
Blood Work CBC in 3-5 days (has CBC and IV Venofer infusion
scheduled with Dr. Santoro 04/29/24)
Instructions:
Stand-Alone Forms: DC Instructions- Cath/EP Lab
Changes to Home Medications: Yes
Discharge Medications:
DC Medications w/original date entered in [employer]
atorvastatin 20 mg tablet 20 mg PO DAILY@1200 High Cholesterol 08/31/23
escitalopram oxalate 10 mg tablet (Lexapro) 10 mg PO HS Mental Health/Anxiety 08/31/23
glimepiride 2 mg tablet 2 mg PO DAILY Diabetes 08/31/23
icosapent ethyl 1 gram capsule (Vascepa) 2 g PO BID Heart Disease/Condition 08/31/23
levothyroxine 75 mcg tablet 75 mcg PO MOTUWETHFRSA Thyroid 08/31/23
levothyroxine 75 mcg tablet 150 mcg PO MAC 08/31/23
lisinopril 10 mg-hydrochlorothiazide 12.5 mg tablet 1 tab PO DAILY Blood Pressure 08/31/23
metformin 500 mg tablet 1,000 mg PO BID Diabetes 08/31/23
multivitamin 1 tab PO DAILY@1200 Supplement 08/31/23
semaglutide 0.25 mg or 0.5 mg (2 mg/3 mL) subcutaneous pen injector (Ozempic) 0.5 mg SC TU Diabetes 08/31/23
apixaban 5 mg tablet (Eliquis) 5 mg PO BID Blood Clot Prevention/Tx 09/14/23
diltiazem HCl 240 mg capsule,24 hr,extended release 240 mg PO DAILY Heart Disease/Condition 04/04/24
magnesium 200 mg tablet 400 mg PO DAILY Supplement 04/04/24
Durvalumab-Imfinzi 780 mg IV Q2W Cancer 04/24/24
acetaminophen 500 mg tablet 1,000 mg PO Q6H PRN pain 04/24/24
albuterol sulfate 90 mcg/actuation aerosol inhaler 2 puff inhalation 6XD PRN sob 04/24/24
calcium 600 mg capsule 600 mg PO DAILY@1200 Supplement 04/24/24
iron sucrose 200 mg iron/10 mL intravenous solution (Venofer) 200 mg IV QWEEK Supplement 04/24/24
magnesium sulfate 2 gram/50 mL (4 %) in water intravenous piggyback 1 g IV ONCE PRN hypomagnesium 04/24/24
omeprazole 40 mg capsule,delayed release 40 mg PO DAILY GERD #30 caps 04/26/24
Home Medication Changes
Start omeprazole 40 mg daily x 30 days post ablation then stop
Pending Results: No
Total time spent discharging patient (in min): 34
[2024-04-26 12:04] VITALS: BP 122/59
[2024-04-26 12:14] LABS: Glucose - Point of Care 90 mg/dl (70-99)
[2024-04-26] MEDS: LIPITOR 20 MG PO (13:30)
--- NOTE | 2024-04-26 15:32 | PTCARENOTE ---
Pt's IV line & nurse monitoring D/C'd. Discussed pt's D/C instructions w/pt & spouse. Pt taken out via wheelchair w/personal belongings including cellphone. Pt driven home by spouse.
== END 2024-04-26 15:00 | disposition home or self-care (01) ==
LOC: CATH 05:50
PROVIDERS: Nurse Practitioner Adult Health; ATTENDING PHYSICIAN Internal Medicine Cardiovascular Disease; CONSULT PHYSICIAN Internal Medicine Critical Care Medicine; FAMILY PHYSICIAN Family Medicine; OTHER PHYSICIAN Internal Medicine Cardiovascular Disease
DX: I48.19 Other persistent atrial fibrillation (principal); E03.9 Hypothyroidism, unspecified; G47.33 Obstructive sleep apnea (adult) (pediatric); I10 Essential (primary) hypertension; E11.9 Type 2 diabetes mellitus without complications; C34.90 Malignant neoplasm of unspecified part of unspecified bronchus or lung; D50.9 Iron deficiency anemia, unspecified; F41.9 Anxiety disorder, unspecified; M85.80 Other specified disorders of bone density and structure, unspecified site; E83.42 Hypomagnesemia; H81.10 Benign paroxysmal vertigo, unspecified ear; Z87.891 Personal history of nicotine dependence; Z79.899 Other long term (current) drug therapy; Z79.890 Hormone replacement therapy; Z79.01 Long term (current) use of anticoagulants; K76.0 Fatty (change of) liver, not elsewhere classified; Z79.85 Long-term (current) use of injectable non-insulin antidiabetic drugs; E78.2 Mixed hyperlipidemia; E87.1 Hypo-osmolality and hyponatremia; Z92.3 Personal history of irradiation; J95.821 Acute postprocedural respiratory failure; I08.1 Rheumatic disorders of both mitral and tricuspid valves; Z83.3 Family history of diabetes mellitus; Z82.49 Family history of ischemic heart disease and other diseases of the circulatory system; Z90.49 Acquired absence of other specified parts of digestive tract; Z98.890 Other specified postprocedural states; Z86.0100 Personal history of colon polyps, unspecified; Z79.84 Long term (current) use of oral hypoglycemic drugs; Z92.21 Personal history of antineoplastic chemotherapy; Z86.79 Personal history of other diseases of the circulatory system
CPT/HCPCS: C1732; C1894; C1730; C1769; C1733; C1766; 36415; 71046; 80048; 80053; 82962; 83036; 83735; 85025; 85027; 85347; 85610; 86850; 86900; 86901; 93005; 93656; 93657; 94660

== ENCOUNTER → 2025-01-23 11:40 | Outpatient (REF) | payer OTHER, SELFPAY ==
[2025-01-23 12:04] LABS: Glucose 123 mg/dl (70-99)
== END ==
LOC: PET 11:40
PROVIDERS: ATTENDING PHYSICIAN Internal Medicine Hematology & Oncology
DX: C34.2 Malignant neoplasm of middle lobe, bronchus or lung (principal); E83.42 Hypomagnesemia; D50.0 Iron deficiency anemia secondary to blood loss (chronic)
CPT/HCPCS: 36415; 82947

== ENCOUNTER → 2025-02-19 13:21 | Outpatient (REF) | payer OTHER, SELFPAY | LOC: RAD 13:21 | PROVIDERS: ATTENDING PHYSICIAN Internal Medicine Hematology & Oncology; FAMILY PHYSICIAN Family Medicine | DX: C34.2 Malignant neoplasm of middle lobe, bronchus or lung (principal) | CPT/HCPCS: 71260; Q9967 ==